=== PATIENT | male | born 1935 | race Caucasian/White ===

== ENCOUNTER 2019-10-17 20:09 | Observation (INO) ==
--- NOTE | 2019-10-17 21:04 | ERNOTE ---
Dyspnea - Date Date of Service: 10/17/19 - General Time Seen by Provider: 10/17/19 20:33 - Immun/Allergies/Home Medications Immunizations: IMMUNIZATION HX Immunizations Up to Date Yes History of Influenza Vaccine Yes Hx Pneumococcal Vaccination No Allergies/Adverse Reactions: Allergies No Known Allergies Allergy (Verified 10/17/19 20:27) Home Medications: HOME MEDICATIONS Aspirin 325 mg PO DAILY 04/16/16 [Last Taken Unknown] Atorvastatin Calcium [Lipitor] 10 mg PO DAILY 04/16/16 [Last Taken Unknown] Budesonide/Formoterol Fumarate [Symbicort 80-4.5 Mcg Inhaler] 1 puff IH BID 04/16/16 [Last Taken Unknown] Carbidopa [Lodosyn] 25 mg PO HS 04/16/16 [Last Taken Unknown] Hydrochlorothiazide [Hydrodiuril] 12.5 mg PO DAILY 04/16/16 [Last Taken Unknown] Losartan Potassium [Cozaar] 50 mg PO DAILY 04/16/16 [Last Taken Unknown] Metoprolol Tartrate [Lopressor] 12.5 mg PO BID 04/16/16 [Last Taken Unknown] ropinirole 0.5 mg tablet 0.5 mg PO DAILY 06/24/18 [Last Taken Unknown] cholecalciferol (vitamin D3) 2,000 unit capsule 2,000 unit PO DAILY 10/07/19 [Last Taken Unknown] - History of Present Illness Narrative: Patient is an 84 years old male who present brought in by his daughters with multiple complaints. Patient was diagnosed with pneumonia 2 weeks ago and started on Z-Lui and corticosteroid, prednisone tapered. After 2 rounds of Z- Lui and more than 10 days of corticosteroid he still has a cough productive of sputum. He also complains of not having a bowel movement for 5 days and having left lower quadrant pain. His and his daughter also said that he is forgetful and just not as sharp as he normally is. Patient had two fall in the last 2 weeks. He reports he got himself entangled in his oxygen tubing. After each falls he was seen in the ED and had x-rays taken to rule out rib fracture. 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 He is on 4 L during the day, and 2 L at night. His initial EKG show atrial fibrillation and patient and family denied him having previous diagnostic of atrial fibrillation. Medical History (Last Reviewed 10/17/19 @ 21:21 by Ivelisse Caldwell RN) Diverticulitis of colon Onset Date: Unknown Ganglion Onset Date: ~2012 rt knee Hypertension Onset Date: Unknown Myocardial infarction Onset Date: ~1994 Restless legs Onset Date: Unknown Surgical History: Surgical History (Last Reviewed 10/17/19 @ 21:21 by Ivelisse Caldwell RN) Excision Onset Date: ~2012 [place]--excision ganglion cyst rt lateral knee History of angioplasty Onset Date: Unknown History of cataract surgery Onset Date: ~2011 bilat History of colonoscopy Onset Date: ~2011 [facility] Family History: Family History (Last Reviewed 10/17/19 @ 21:21 by Ivelisse Caldwell RN) Brother Myocardial infarction CVA (cerebral vascular accident) Father Lung cancer Mother Bone cancer Social History: (Last Reviewed 10/17/19 @ 21:21 by Ivelisse Caldwell RN) Social History: Marital status: current occupational status: retired Service: Yes Tobacco: Smoking Status: Former smoker Alcohol: alcohol intake: current Substance Use: substance use type: does not use Dietary Habits: caffeine: Yes Progress - Vital Signs Vital Signs: Vital Signs 10/17/19 20:20 Temperature 36.8 C Pulse Rate 82 Respiratory Rate 93 H Blood Pressure 160/84 H O2 Sat by Pulse Oximetry 93 - EKG EKG #1 EKG: atrial fibrillation EKG read: Interp. by nv - HR 75 - Progress/Reassessment Chief Complaint: Dyspnea Departure Clinical Impression: New onset atrial fibrillation, Constipation - Departure Disposition: Still a patient Condition: Fair
[2019-10-17 21:17] LABS: Hematocrit 36.6 % (42.0-52.0); Hemoglobin 11.8 gm/dL (13.5-18.0); Mean Cell Volume 97.3 fl (78-100); Mean Corpuscular Hemoglobin 31.4 pg (27-31); Mean Corpuscular Hgb Conc 32.2 g/dl (32-36); Mean Platelet Volume 9.4 fl (8-11.3); Platelet Count 215 K/mm3 (150-450); Red Blood Count 3.76 M/mm3 (4.7-6.0); Red Cell Distribution Width 15.1 % (11.5-14.0); Venous Blood Gas HCO3 33.3 mmol/L (22.0-29.0); Venous Blood Gas pH 7.47 (7.32-7.43); White Blood Count 12.1 K/mm3 (4.0-10.5)
[2019-10-17 21:22] LABS: Total Cells Counted 100
[2019-10-17 21:42] LABS: Albumin * 2.8 gm/dl (3.4-5.0); Anion Gap 7.9 mmol/L (6.8-13.8); Bilirubin, Total 0.8 mg/dL (0.0-1.1); Ca. Corrected For Albumin 8.9 mg/dL (8.4-10.2); Calcium * 8.3 mg/dL (7.9-10.9); Carbon Dioxide 35.3 mmol/L (24-32.6); Potassium 3.2 mmol/L (3.4-4.6); Total Protein 6.2 gm/dL (6.2-8.2)
[2019-10-17 21:46] LABS: Urine Bilirubin Negative (NEGATIVE); Urine Blood 25 /ul (NEGATIVE); Urine Ketone Negative (NEGATIVE); Urine Nitrite Negative (NEGATIVE); Urine Protein Negative (NEGATIVE)
[2019-10-17 21:52] LABS: Band 3 % (0-2.0); Eosinophil 2 % (0-3); Lymphocyte 8 % (20-51); Monocyte 2 % (0-9); Neutrophil 85 % (42-75); Neutrophil # 10.3 K/mm3 (1.3-6.0); Platelet Estimate Normal (NORMAL); RBC Morphology Normal (NORMAL)
[2019-10-17 21:55] LABS: Urine Appearance Slightly Cloudy (CLEAR); Urine Bacteria 1+; Urine Color Yellow; Urine RBC 0-5 /hpf (0-5); Urine Renal Epithelial Cell Few - 1+ /hpf
[2019-10-17] MEDS ORDERED: MORPHINE SULFATE 4 MG/ML SYRG IV ONE (22:54)
[2019-10-18] MEDS ORDERED: POTASSIUM CHLORIDE 20 MEQ TABLET.SA PO ONE (01:32)
[2019-10-18] MEDS ORDERED: MAGNESIUM CITRATE 300 ML BTL PO ONE (02:48)
[2019-10-18] MEDS ORDERED: ENOXAPARIN SODIUM 60 MG/0.6 ML SYRG SC SCH (03:15)
[2019-10-18] MEDS ORDERED: METOPROLOL TARTRATE 25 MG TABLET PO ONE (09:42)
[2019-10-18] MEDS ORDERED: DOCUSATE SODIUM 100 MG CAPSULE PO SCH (11:45)
[2019-10-18] MEDS ORDERED: POLYETHYLENE GLYCOL 3350 17 GM PACKET PO SCH (11:45)
[2019-10-18] MEDS ORDERED: ALBUTEROL SULFATE/IPRATROPIUM 3 ML NEBU IH PRN (12:08)
[2019-10-18] MEDS ORDERED: guaiFENesin 100 MG/5 ML SYRUP PO PRN (12:09)
[2019-10-18] MEDS ORDERED: HYDROCHLOROTHIAZIDE 12.5 MG CAPSULE PO SCH (12:15)
[2019-10-18] MEDS ORDERED: LOSARTAN POTASSIUM 50 MG TABLET PO SCH (12:15)
[2019-10-18] MEDS ORDERED: CHOLECALCIFEROL 1,000 UNIT CAPSULE PO SCH (12:15)
[2019-10-18] MEDS ORDERED: rOPINIRole HCL 0.5 MG TABLET PO SCH (12:15)
--- NOTE | 2019-10-18 12:31 | HPDIS ---
Chief Complaint - Chief Complaint Date of Service: 10/18/19 Time of Service: 12:11 Chief Complaint: I have chronic shortness of breath and constipation for 4 days History of Present Illness: 84-year-old male with a past medical history of COPD, oxygen dependence, Parkinson's disease, hypertension, coronary artery disease, old OR and recent pneumonia was evaluated in our ER when he was brought in by his and daughter who reported that the patient has been weak and increasingly confused and presents memory loss for the past few days. Patient was diagnosed with pneumonia 2 weeks ago and was treated on an outpatient basis with p.o. antibiotics and p.o. steroids due to exacerbation of his COPD. He reports that he got slightly better but has never felt okay. He also complained of constipation for more than 5 days that has been making him very uncomfortable and ill to his stomach. His only other complaint was left flank pain due to a known rib fracture secondary to a fall that occurred in his home several days ago, he takes ibuprofen for the pain which helps. Patient has had several recent falls most likely related to his chronic conditions and problems with balance, although he says a second one was due to his clumsiness when he tripped over his oxygen tubes. He denies any fever or chills or ongoing cough but says he feels increasingly short of breath due to COPD. Patient denied any other symptoms. Medical History (Last Reviewed 10/17/19 @ 21:21 by Ivelisse Caldwell RN) Diverticulitis of colon Onset Date: Unknown Ganglion Onset Date: ~2012 rt knee Hypertension Onset Date: Unknown Myocardial infarction Onset Date: ~1994 Restless legs Onset Date: Unknown Surgical History: Surgical History (Last Reviewed 10/17/19 @ 21:21 by Ivelisse Caldwell RN) Excision Onset Date: ~2012 [place]--excision ganglion cyst rt lateral knee History of angioplasty Onset Date: Unknown History of cataract surgery Onset Date: ~2011 bilat History of colonoscopy Onset Date: ~2011 [facility] Family History: Family History (Last Reviewed 10/17/19 @ 21:21 by Ivelisse Caldwell RN) Brother Myocardial infarction CVA (cerebral vascular accident) Father Lung cancer Mother Bone cancer Social History: (Last Reviewed 10/17/19 @ 21:21 by Ivelisse Caldwell RN) Social History: Marital status: current occupational status: retired Service: Yes Tobacco: Smoking Status: Former smoker Alcohol: alcohol intake: current Substance Use: substance use type: does not use Dietary Habits: caffeine: Yes Peds Patient Hx - Developmental: No Pertinent Hx Peds Patient Hx - Medical: No Pertinent Hx Peds Patient Hx - Cardiac/Respiratory: No Pertinent Hx Peds Patient Hx - Surgical: No Surgical History Patient History - Cancer: No Hx of Cancer Review Of Systems (GEN) - Review of Systems Generalized/Overall Review: Present: Fatigue EENTM: Present: No Symptoms Reported Respiratory: Present: Shortness of Breath Cardiac: Present: No Symptoms Reported Abdominal: Present: Constipation Genitourinary: Present: No Symptoms Reported Musculoskeletal: Present: No Symptoms Reported Neurological: Present: No Symptoms Reported Skin: Present: No Symptoms Reported Endocrine: Present: No Symptoms Reported Immunizations: IMMUNIZATION HX Immunizations Up to Date Yes History of Influenza Vaccine Yes Hx Pneumococcal Vaccination No Allergies/Adverse Reactions: Allergies Allergy/AdvReac Type Severity Reaction Status Date / Time No Known Allergies Allergy Verified 10/17/19 20:27 Home Medications: HOME MEDICATIONS Aspirin 325 mg PO DAILY 04/16/16 [Last Taken Unknown] Atorvastatin Calcium [Lipitor] 10 mg PO DAILY 04/16/16 [Last Taken Unknown] Budesonide/Formoterol Fumarate [Symbicort 80-4.5 Mcg Inhaler] 1 puff IH BID 04/16/16 [Last Taken Unknown] Carbidopa [Lodosyn] 25 mg PO HS 04/16/16 [Last Taken Unknown] Hydrochlorothiazide [Hydrodiuril] 12.5 mg PO DAILY 04/16/16 [Last Taken Unknown] Losartan Potassium [Cozaar] 50 mg PO DAILY 04/16/16 [Last Taken Unknown] Metoprolol Tartrate [Lopressor] 12.5 mg PO BID 04/16/16 [Last Taken Unknown] ropinirole 0.5 mg tablet 0.5 mg PO DAILY 06/24/18 [Last Taken Unknown] cholecalciferol (vitamin D3) 2,000 unit capsule 2,000 unit PO DAILY 10/07/19 [Last Taken Unknown] Polyethylene Glycol 3350 [Miralax] 17 gm PO DAILY #10 packet 10/18/19 [Last Taken Unknown] Exam - Exam Vital Signs: Vital Signs - Last Taken Temp 36.8 C 10/18/19 10:41 Pulse 68 10/18/19 10:41 Resp 20 10/18/19 10:41 BP 163/77 H 10/18/19 10:41 Pulse Ox 95 10/18/19 10:41 Constitutional: Present: Alert, Oriented x3, Cooperative, Well developed, No distress, Elderly, Thin and frail ENT Exam: Present: normal ENT inspection, hearing grossly normal, pharynx juliocesar l, TMs normal Eye Exam: bilateral eye: normal inspection, PERRL, EOMI Neck: Present: non-tender, full range of motion, supple, normal inspection, trac hea midline Back Exam: Present: normal inspection, no CVA tenderness, no vertebral tenderness Breasts: Present: Exam deferred Respiratory: Present: lungs clear, no respiratory distress, decreased breath sounds, rhonchi, No rales, No wheezing Cardiovascular/Chest: Present: normal peripheral pulses, regular rate, rhythm, no chest tenderness, no edema, no gallop, no JVD, no murmur, no rub Peripheral Pulses: carotid (R): 3+, carotid (L): 3+, femoral (R): 3+, femoral (L): 3+, dorsalis-pedis (R): 2+, dorsalis-pedis (L): 2+ Abdomen: Present: Normal bowel sounds, soft, nontender, nondistended, no rebound tenderness, no hepatospenomegaly, no masses /Rectal: Present: Exam deferred Extremity: Present: normal range of motion, non-tender, normal inspection, no pedal edema, no calf tenderness, normal capillary refill, pelvis stable Skin Exam: Present: normal color, warm/dry, no cyanosis Lymphatic: Present: no adenopathy Neurologic: Present: machine greaser II-XII nml as tested, normal cerebellar test, no motor/sensory deficits, alert, normal mood/affect, oriented x 3 Appearance: Present: appropriate insight, neat, no memory impairment, disheveled Eye contact: Present: cooperative, good eye contact, normal speech Thoughts: Present: normal thought pattern, no apparent hallucination Diagnostic Studies: Abnormal Lab Results 10/17/19 10/17/19 10/17/19 Range/Units 21:10 21:10 21:10 WBC 12.1 H (4.0-10.5) K/mm3 RBC 3.76 L (4.7-6.0) M/mm3 Hgb 11.8 L (13.5-18.0) gm/dL Hct 36.6 L (42.0-52.0) % MCH 31.4 H (27-31) pg RDW 15.1 H (11.5-14.0) % Neutrophils % (Manual) 85 H (42-75) % Band Neuts % (Manual) 3 H (0-2.0) % Lymphocytes % (Manual) 8 L (20-51) % Neutrophils # (Manual) 10.3 H (1.3-6.0) K/mm3 Lymphocytes # (Manual) 1.0 L (1.5-3.5) k/mm3 HCO3 33.3 H (22.0-29.0) mmol/L Total CO2 34.7 H (22.0-26.0) mmol/L Base Excess 8.6 H (-2.0-3.0) mmol/L ABG pH 7.47 H (7.32-7.43) VBG O2 Saturation 66.6 L (94.0-98.0) % Potassium 3.2 L (3.4-4.6) mmol/L Carbon Dioxide 35.3 H (24-32.6) mmol/L BUN/Creatinine Ratio 28.0 H (9.0-21.6) ALT 13 L (19-67) U/L Albumin 2.8 L (3.4-5.0) gm/dl Urine Blood (NEGATIVE) /ul Urine Urobilinogen (NORMAL) EU/dl Urine WBC (0-5) /hpf Ur Renal Epithelial Cell (NONE) /hpf Urine Bacteria (NONE) 10/17/19 Range/Units 21:41 WBC (4.0-10.5) K/mm3 RBC (4.7-6.0) M/mm3 Hgb (13.5-18.0) gm/dL Hct (42.0-52.0) % MCH (27-31) pg RDW (11.5-14.0) % Neutrophils % (Manual) (42-75) % Band Neuts % (Manual) (0-2.0) % Lymphocytes % (Manual) (20-51) % Neutrophils # (Manual) (1.3-6.0) K/mm3 Lymphocytes # (Manual) (1.5-3.5) k/mm3 HCO3 (22.0-29.0) mmol/L Total CO2 (22.0-26.0) mmol/L Base Excess (-2.0-3.0) mmol/L ABG pH (7.32-7.43) VBG O2 Saturation (94.0-98.0) % Potassium (3.4-4.6) mmol/L Carbon Dioxide (24-32.6) mmol/L BUN/Creatinine Ratio (9.0-21.6) ALT (19-67) U/L Albumin (3.4-5.0) gm/dl Urine Blood 25 H (NEGATIVE) /ul Urine Urobilinogen 2.0 H (NORMAL) EU/dl Urine WBC 5-10 H (0-5) /hpf Ur Renal Epithelial Cell Few - 1+ H (NONE) /hpf Urine Bacteria 1+ H (NONE) Laboratory Results WBC 12.1 K/mm3 (4.0-10.5) H 10/17/19 21:10 RBC 3.76 M/mm3 (4.7-6.0) L 10/17/19 21:10 Hgb 11.8 gm/dL (13.5-18.0) L 10/17/19 21:10 Hct 36.6 % (42.0-52.0) L 10/17/19 21:10 MCV 97.3 fl (78-100) 10/17/19 21:10 MCH 31.4 pg (27-31) H 10/17/19 21:10 MCHC 32.2 g/dl (32-36) 10/17/19 21:10 RDW 15.1 % (11.5-14.0) H 10/17/19 21:10 Plt Count 215 K/mm3 (150-450) 10/17/19 21:10 MPV 9.4 fl (8-11.3) 10/17/19 21:10 Neutrophils % (Manual) 85 % (42-75) H 10/17/19 21:10 Band Neuts % (Manual) 3 % (0-2.0) H 10/17/19 21:10 Lymphocytes % (Manual) 8 % (20-51) L 10/17/19 21:10 Monocytes % (Manual) 2 % (0-9) 10/17/19 21:10 Eosinophils % (Manual) 2 % (0-3) 10/17/19 21:10 Neutrophils # (Manual) 10.3 K/mm3 (1.3-6.0) H 10/17/19 21:10 Lymphocytes # (Manual) 1.0 k/mm3 (1.5-3.5) L 10/17/19 21:10 Monocytes # (Manual) 0.2 k/mm3 (0.0-1.0) 10/17/19 21:10 Eosinophils # (Manual) 0.2 k/mm3 (0.0-0.7) 10/17/19 21:10 Platelet Estimate Normal (NORMAL) 10/17/19 21:10 RBC Morphology Normal (NORMAL) 10/17/19 21:10 pCO2 46.4 mmHg (35.0-48.0) 10/17/19 21:10 pO2 32.8 mmHg (23.3-35.1) 10/17/19 21:10 HCO3 33.3 mmol/L (22.0-29.0) H 10/17/19 21:10 Total CO2 34.7 mmol/L (22.0-26.0) H 10/17/19 21:10 Base Excess 8.6 mmol/L (-2.0-3.0) H 10/17/19 21:10 ABG pH 7.47 (7.32-7.43) H 10/17/19 21:10 VBG O2 Saturation 66.6 % (94.0-98.0) L 10/17/19 21:10 Sodium 142 mmol/L (132-142) 10/17/19 21:10 Plasma Sodium 142 mmol/L (130-142) 10/17/19 21:10 Potassium 3.2 mmol/L (3.4-4.6) L 10/17/19 21:10 Chloride 102 mmol/L (97-106) 10/17/19 21:10 Carbon Dioxide 35.3 mmol/L (24-32.6) H 10/17/19 21:10 Anion Gap 7.9 mmol/L (6.8-13.8) 10/17/19 21:10 BUN 23 mg/dL (6-23) 10/17/19 21:10 Creatinine 0.82 mg/dL (0.4-1.4) 10/17/19 21:10 Est GFR (Non-Af Amer) 95 mL/min (60-130) D 10/17/19 21:10 BUN/Creatinine Ratio 28.0 (9.0-21.6) H 10/17/19 21:10 Random Glucose 103 mg/dL (70-110) 10/17/19 21:10 Lactic Acid, Venous 0.9 mmol/L (0.4-2.0) 10/17/19 21:10 Calcium 8.3 mg/dL (7.9-10.9) 10/17/19 21:10 Calcium Adj for Albumin 8.9 mg/dL (8.4-10.2) 10/17/19 21:10 Total Bilirubin 0.8 mg/dL (0.0-1.1) 10/17/19 21:10 AST 23 U/L (0-48) 10/17/19 21:10 ALT 13 U/L (19-67) L 10/17/19 21:10 Alkaline Phosphatase 100 U/L (50-170) 10/17/19 21:10 B-Natriuretic Peptide 570 pg/mL (5-650) 10/17/19 21:10 Total Protein 6.2 gm/dL (6.2-8.2) 10/17/19 21:10 Albumin 2.8 gm/dl (3.4-5.0) L 10/17/19 21:10 Urine Color Yellow 10/17/19 21:41 Urine Appearance Slightly cloudy (CLEAR) 10/17/19 21:41 Urine pH 6.0 pH (5.0-7.0) 10/17/19 21:41 Ur Specific Criders 1.010 SP.GR. (1.005-1.030) 10/17/19 21:41 Urine Protein Negative mg/dL (NEGATIVE) 10/17/19 21:41 Urine Glucose (UA) Negative mg/dL (NEGATIVE) 10/17/19 21:41 Urine Ketones Negative mg/dL (NEGATIVE) 10/17/19 21:41 Urine Blood 25 /ul (NEGATIVE) H 10/17/19 21:41 Urine Nitrate Negative (NEGATIVE) 10/17/19 21:41 Urine Bilirubin Negative mg/dl (NEGATIVE) 10/17/19 21:41 Urine Urobilinogen 2.0 EU/dl (NORMAL) H 10/17/19 21:41 Ur Leukocyte Esterase Negative /ul (NEGATIVE) 10/17/19 21:41 Urine RBC 0-5 /hpf (0-5) 10/17/19 21:41 Urine WBC 5-10 /hpf (0-5) H 10/17/19 21:41 Ur Epithelial Cells None seen /hpf (0-5) 10/17/19 21:41 Ur Renal Epithelial Cell Few - 1+ /hpf (NONE) H 10/17/19 21:41 Urine Bacteria 1+ (NONE) H 10/17/19 21:41 Urine Culture Comments No culture indicated 10/17/19 21:41 Stool Occult Blood Negative 10/17/19 22:53 Assessment/Plan - Narrative Narrative: Patient was evaluated at bedside and was found to be afebrile and in no acute distress, he is currently on his baseline oxygen by nasal cannula and is saturating adequately. Head CT was negative for any acute findings and abdominal CT revealed a right inguinal hernia with loop of small bowel diverticulosis and a bladder filling defect suspicious for malignancy. The radiologist suggested a urological consult and possible uroscopy. This will have to be done an outpatient basis and evaluated by his PCP after discharge. Currently the patient denies any pain besides his soreness on his left flank due to his old rib fracture. He is sitting comfortably and is oriented in person time and place. His routine medications were reconciled to be administered during hospitalization in order to control his blood pressure and other chronic conditions. Patient was treated with multiple laxatives and a Fleet enema and has now moved his bowels 5 times, he reports great relief after this. His abdomen was nontender nondistended and had normal bowel sounds. Auscultation of his lungs only revealed scattered rhonchi which might be chronic given his advanced pulmonary conditions. There were no wheezing or crackles heard on auscultation. Patient denied any chest pain or chest pressure and says he has not had any cardiac issues since his OR back in 1998. Patient was found to have a new onset atrial fibrillation during evaluation in the ER before admission, he denied ever being diagnosed with atrial fibrillation and there was no record of that. This morning quality assurance monitor final displayed sinus rhythm with adequate heart rate, but as a precaution follow-up EKG was done at bedside and revealed ST segment depression in several leads. Given the lack of known history of atrial fibrillation and the abnormalities on his EKG this morning, troponin was ordered to rule out any cardiac ischemia. We will follow-up with the results and if they are negative we will consider discharging the patient home. His family specifically his daughter was informed of the plan. - Assessment/Plan (1) New onset atrial fibrillation Problem: Resolved (2) Constipation Problem: Resolved (3) COPD (chronic obstructive pulmonary disease) Problem: Chronic Qualifiers: COPD type: emphysema (4) HTN (hypertension) Problem: Chronic Qualifiers: Hypertension type: essential hypertension Qualified Code(s): I10 - Essential (primary) hypertension (1) New onset atrial fibrillation Problem: Resolved (2) Constipation Problem: Resolved (3) COPD (chronic obstructive pulmonary disease) Problem: Chronic Qualifiers: COPD type: emphysema (4) HTN (hypertension) Problem: Chronic Qualifiers: Hypertension type: essential hypertension Qualified Code(s): I10 - Essential (primary) hypertension Date of Discharge:: 10/18/19 Description of Stay: Patient's troponin was negative, and he continues to denies chest pain or chest discomfort. He has had multiple bowels after being treated for his constipation. All of his routine meds were reconciled and he was instructed to take them as prescribed and to follow-up with his PCP in the next few days. Procedures Performed: none Results and Findings: Lab Pending Results 10/17/19 21:10: WBC 12.1 H, RBC 3.76 L, Hgb 11.8 L, Hct 36.6 L, MCV 97.3, MCH 31.4 H, MCHC 32.2, RDW 15.1 H, Plt Count 215, MPV 9.4, Neutrophils % (Manual) 85 H, Band Neuts % (Manual) 3 H, Lymphocytes % (Manual) 8 L, Monocytes % (Manual) 2, Eosinophils % (Manual) 2, Neutrophils # (Manual) 10.3 H, Lymphocytes # (Manual) 1.0 L, Monocytes # (Manual) 0.2, Eosinophils # (Manual) 0.2, Platelet Estimate Normal, RBC Morphology Normal 10/17/19 21:10: Sodium 142, Plasma Sodium 142, Potassium 3.2 L, Chloride 102, Carbon Dioxide 35.3 H, Anion Gap 7.9, BUN 23, Creatinine 0.82, Est GFR (Non-Af Amer) 95 D, BUN/Creatinine Ratio 28.0 H, Random Glucose 103, Calcium 8.3, Calcium Adj for Albumin 8.9, Total Bilirubin 0.8, AST 23, ALT 13 L, Alkaline P hosphatase 100, B-Natriuretic Peptide 570, Total Protein 6.2, Albumin 2.8 L 10/17/19 21:10: Lactic Acid, Venous 0.9 10/17/19 21:10: pCO2 46.4, pO2 32.8, HCO3 33.3 H, Total CO2 34.7 H, Base Excess 8.6 H, ABG pH 7.47 H, VBG O2 Saturation 66.6 L 10/17/19 21:41: Urine Color Yellow, Urine Appearance Slightly cloudy, Urine pH 6.0, Ur Specific Criders 1.010, Urine Protein Negative, Urine Glucose (UA) Negative, Urine Ketones Negative, Urine Blood 25 H, Urine Nitrate Negative, Urine Bilirubin Negative, Urine Urobilinogen 2.0 H, Ur Leukocyte Esterase Negative, Urine RBC 0-5, Urine WBC 5-10 H, Ur Epithelial Cells None seen, Ur Renal Epithelial Cell Few - 1+ H, Urine Bacteria 1+ H, Urine Culture Comments No culture indicated 10/17/19 22:53: Stool Occult Blood Negative Discharge Location: Home Disposition: Home self-care Condition: Stable Face to Face Encounter completed per [facility] Guidelines: No Discharge Activity: Activity as tolerated Discharge Diet: General/regular food Referrals: Geovany Mcbride DO [Primary Care Provider] - Prescriptions (Any new or edited meds): Polyethylene Glycol 3350 [Miralax] 17 gm PO DAILY #10 packet Transmission Status: Pending to [facility] - [place], [place] Complete Home Medications List: Complete Home Medication List: Aspirin 325 mg PO DAILY 04/16/16 Atorvastatin Calcium [Lipitor] 10 mg PO DAILY 04/16/16 Budesonide/Formoterol Fumarate [Symbicort 80-4.5 Mcg Inhaler] 1 puff IH BID 04/16/16 Carbidopa [Lodosyn] 25 mg PO HS 04/16/16 Hydrochlorothiazide [Hydrodiuril] 12.5 mg PO DAILY 04/16/16 Losartan Potassium [Cozaar] 50 mg PO DAILY 04/16/16 Metoprolol Tartrate [Lopressor] 12.5 mg PO BID 04/16/16 ropinirole 0.5 mg tablet 0.5 mg PO DAILY 06/24/18 cholecalciferol (vitamin D3) 2,000 unit capsule 2,000 unit PO DAILY 10/07/19 Polyethylene Glycol 3350 [Miralax] 17 gm PO DAILY #10 packet 10/18/19
[2019-10-18 16:46] VITALS: BP 164/81
[2019-10-18] MEDS ORDERED: CARBIDOPA 25 MG PO SCH (21:00)
[2019-10-18] MEDS ORDERED: METOPROLOL TARTRATE 25 MG TABLET PO SCH (21:00)
[2019-10-18] MEDS ORDERED: FLUTICASONE PROPION/SALMETEROL 14 PUFF DISK.W.DEV IH SCH (21:00)
[2019-10-19] MEDS ORDERED: ROSUVASTATIN CALCIUM 10 MG TABLET PO SCH (09:00)
== END 2019-10-18 16:40 | disposition home health service (06) ==
LOC: ER 20:09 → MS 20:09
PROVIDERS: ADMIT Family Medicine; ATTEND Family Medicine
DX: I25.2 Old myocardial infarction; I10 Essential (primary) hypertension; K59.00 Constipation, unspecified; Z91.81 History of falling; I25.10 Atherosclerotic heart disease of native coronary artery without angina pectoris; J44.9 Chronic obstructive pulmonary disease, unspecified; Z87.891 Personal history of nicotine dependence; Z87.81 Personal history of (healed) traumatic fracture; I48.91 Unspecified atrial fibrillation
CPT/HCPCS: 36415; 36416; 70450; 71020; 71046; 74019; 74020; 74177; 80053; 81001; 82272; 82803; 83519; 83605; 83880; 84484; 85025; 87040; 93005; 94760; 96374; 99285; G0378; Q9967

== ENCOUNTER 2019-10-25 17:35 | Inpatient (IN) ==
[2019-10-25] MEDS ORDERED: ALBUTEROL SULFATE/IPRATROPIUM 3 ML NEBU IH ONE (17:57)
[2019-10-25] MEDS ORDERED: METHYLPREDNISOLONE SOD SUCC/PF 40 MG/ML VIAL IV ONE (17:59)
--- NOTE | 2019-10-25 18:00 | ERNOTE ---
Dyspnea - Date Date of Service: 10/25/19 - General Presenting Symptoms: shortness of breath Time Seen by Provider: 10/25/19 17:52 Source: patient Exam Limitations: no limitations - Immun/Allergies/Home Medications Immunizations: IMMUNIZATION HX Immunizations Up to Date Yes History of Influenza Vaccine Yes Hx Pneumococcal Vaccination Yes Allergies/Adverse Reactions: Allergies No Known Allergies Allergy (Verified 10/25/19 17:44) Home Medications: HOME MEDICATIONS Aspirin 325 mg PO DAILY 04/16/16 [Last Taken Unknown] Atorvastatin Calcium [Lipitor] 10 mg PO DAILY 04/16/16 [Last Taken Unknown] Budesonide/Formoterol Fumarate [Symbicort 80-4.5 Mcg Inhaler] 1 puff IH BID 04/16/16 [Last Taken Unknown] Carbidopa [Lodosyn] 25 mg PO HS 04/16/16 [Last Taken Unknown] Hydrochlorothiazide [Hydrodiuril] 12.5 mg PO DAILY 04/16/16 [Last Taken Unknown] Losartan Potassium [Cozaar] 50 mg PO DAILY 04/16/16 [Last Taken Unknown] Metoprolol Tartrate [Lopressor] 12.5 mg PO BID 04/16/16 [Last Taken Unknown] ropinirole 0.5 mg tablet 0.5 mg PO HS 06/24/18 [Last Taken Unknown] cholecalciferol (vitamin D3) 2,000 unit capsule 2,000 unit PO DAILY 10/07/19 [Last Taken Unknown] Polyethylene Glycol 3350 [Miralax] 17 gm PO DAILY #10 packet 10/18/19 [Last Taken Unknown] tiotropium bromide 18 mcg capsule with inhalation device 1 cap INHALATION DAILY #0.1 inh 10/19/19 [Last Taken Unknown] - History of Present Illness Narrative: 84 yr old male with history of HTN, CAD, [place] 1998, Parkinson's Disease, recently diagnosis of atrial fibrillation, oxygen dependent the past 4 years, respiratory failure with hypoxia, severe COPD oxygen dependent, an recent pneumonia presents with SOB and decreased exercise intolerance. Denies any fever. Reports occassional productive cough with white sputum. Denies any chest pain. Wear 2 L O2 N/C during the night and 4 L N/C oxygen during the day. He does not have any nebulizer treatments at home. He had pneumonia approximately two weeks ago and was treated on an outpatient basis. He has had increasing general weakness with frequent falls. Last week he was diagnosed with new onset atrial fibrillation. He was hospitalized over night. He was discharged on aspirin 325 mg for anti - coagulation as he was in sinus rhythm again and because of his falls. He and his live alone. The patient cares for his who has dementia. His daughter has been trying to get some home resources for them. On his discharge from the hospital last week, Dr. Dennis made a referral to [facility] for a home health nurse, physical therapy and a home health aide to assist with bathing etc. They are supposed to start coming on Saturday. Date (Duration): 10/25/19 Time (Timing): 17:54 Severity: moderate Treatment [employer]ER: none Initiating event: Reports: upper resp illness - Had pneumonia 2 - 3 weeks ago. , sports/exercise - any activity such as walking 5 - 10 ft. Frequency of episodes: Reports: chronic episodes - Has chronic COPD, respiratory failure and hypoxia Modifying Factors - (Improves): Reports: rest Modifying Factors (Worsens): Reports: activity, other - stress Associated Symptoms-Dyspnea: Reports: cough - occassional . Denies: fever/chills, wheezing, ankle/leg swelling Prior Treatment: Reports: recently hospitalized - Admitted him last Saturday over night Review of Systems - Review of Systems Constitutional: Present: recent illness - pneumonia 2 - 3 weeks ago , weakness, fatigue, decreased activity level. Absent: fever, chills, diaphoresis EYE: Present: no symptoms reported ENT: Present: no symptoms reported Respiratory: Present: shortness of breath, cough. Absent: wheezing Cardiology: Absent: chest pain, palpitations, edema Gastrointestinal/Abdominal: Present: eating less. Absent: nausea, vomiting Genitourinary: Absent: pain, dysuria, decreased urinary output Musculoskeletal: Present: no symptoms reported Skin: Present: no symptoms reported Neurological: Present: anxiety, weakness Endocrine: Present: no symptoms reported Hematologic/Lymphatic: Present: no symptoms reported Psych: Present: no symptoms reported All Other Systems: All systems neg except as marked Medical History (Last Reviewed 10/25/19 @ 17:57 by YOSVANY Sharp) Diverticulitis of colon Onset Date: Unknown Ganglion Onset Date: ~2012 rt knee Hypertension Onset Date: Unknown Myocardial infarction Onset Date: ~1994 Restless legs Onset Date: Unknown Surgical History: Surgical History (Last Reviewed 10/25/19 @ 17:57 by YOSVANY Sharp) Excision Onset Date: ~2012 [place]--excision ganglion cyst rt lateral knee History of angioplasty Onset Date: Unknown History of cataract surgery Onset Date: ~2011 bilat History of colonoscopy Onset Date: ~2011 [facility] Family History: Family History (Last Reviewed 10/25/19 @ 17:57 by YOSVANY Sharp) Brother Myocardial infarction CVA (cerebral vascular accident) Father Lung cancer Mother Bone cancer Social History: (Last Reviewed 10/25/19 @ 17:57 by YOSVANY Sharp) Social History: Marital status: current occupational status: retired Service: Yes Tobacco: Smoking Status: Former smoker Alcohol: alcohol intake: current Substance Use: substance use type: does not use Dietary Habits: caffeine: Yes Physical Exam - Physical Exam General Appearance: Present: wd/wn, alert, anxious Head Exam: Present: normal inspection, no evidence of injury Eye Exam: Normal inspection: bilateral, PERRL: bilateral, EOMI: bilateral Ears, Nose, Throat: Present: normal except -, normal pharynx, dry mucous membranes Neck: Present: normal inspection, nontender Respiratory: Present: no accessory muscle use, chest nontender, decreased breath sounds - significantly decreased breath sounds, other - Able to converse well . Absent: respiratory distress, rales, rhonchi, wheezing Cardiovascular/Chest: Present: no murmur, normal peripheral pulses, tachycardia Gastrointestinal/Abdominal: Present: normal bowel sounds, nontender, nondistended, soft Back Exam: Present: normal inspection, normal range of motion, no vertebral tenderness Extremity Exam: Present: normal inspection, non-tender, normal range of motion, no edema Neurological Exam: Present: alert, oriented, normal mood/affect, no motor/sensory deficits, other - Anxious Skin Exam: Present: normal color, warm/dry Progress - Results and Orders Patient's Lab Results:: I have reviewed the patient's lab results. Results and Orders: Laboratory Tests 10/25/19 18:12 WBC 16.0 H RBC 3.80 L Hgb 11.8 L Hct 38.1 L Plt Count 175 Laboratory Tests 10/25/19 18:18 pCO2 32.9 L pO2 60.3 L HCO3 24.1 Total CO2 25.1 H Base Excess 1.0 ABG pH 7.48 H ABG O2 Sat (Measured) 93.0 L Laboratory Tests 12/01/19 18:12 Sodium 141 Potassium 3.4 Chloride 104 Carbon Dioxide 33.6 H Anion Gap 6.8 BUN 23 Creatinine 0.85 Est GFR (Non-Af Amer) 91 Random Glucose 100 Calcium 8.7 Total Bilirubin 1.2 H AST 22 ALT 11 L Alkaline Phosphatase 109 B-Natriuretic Peptide 409 Total Protein 6.8 Albumin 3.0 L Laboratory Tests 10/25/19 18:39 Urine Color Yellow Urine Appearance Clear Urine pH 6.5 Ur Specific [place] 1.020 Urine Protein Negative Urine Glucose (UA) Negative Urine Ketones 15 Urine Blood 5 H Urine Nitrate Negative Urine Bilirubin Negative Urine Urobilinogen Normal Ur Leukocyte Esterase Negative Urine RBC None seen Urine WBC 0-5 Ur Epithelial Cells None seen Urine Bacteria None seen Urine Culture Comments No culture indicated Laboratory Tests 10/25/19 18:12 Troponin I 0.043 Laboratory Tests 10/25/19 18:12 D-Dimer 2.75 H - Vital Signs Patient's Vital Signs:: I have reviewed the patient's vital signs. Vital Signs: Vital Signs 10/25/19 17:40 Temperature 37.1 C Pulse Rate 106 H Respiratory Rate 18 Blood Pressure 174/84 H O2 Sat by Pulse Oximetry 92 L - EKG EKG #1 EKG: other - Sinus Tach rate 106 without any acute changes - X-Ray X-Ray #1 X-Ray: chest - consolidation right lower lobe not seen prior Interpretation: Interp. by al - CT/Ultrasound CT/Ultrasound Narrative: CTA chest - No PE. Bibasilar airspace disease. - Progress/Reassessment Chief Complaint: Dyspnea Progress:: Improved Progress Note-Subjective: 10/25/19 19:24 Breathing improved with Duo neb treatment as long as resting. 10/25/19 20:38 10/25/19 22:15 Oxygen saturation drops to mid 80's even while on oxygen with any minimal activity. Even just using the urinal while laying in bed. Test results etiology and treatment plan discussed with the patient and family. Case staffed with Dr. Raya who graciously agreed to accept his care. Plan - Plan Plan: Place in observation Departure Clinical Impression: COPD exacerbation, Supplemental oxygen dependent, Risk for falls Pneumonia Qualifiers: Pneumonia type: due to unspecified organism Laterality: right Lung location: lower lobe of lung Qualified Code(s): J18.9 - Pneumonia, unspecified organism - Departure Disposition: Still a patient Condition: Good
[2019-10-25 18:26] LABS: Hematocrit 38.1 % (42.0-52.0); Hemoglobin 11.8 gm/dL (13.5-18.0); Mean Cell Volume 100.3 fl (78-100); Mean Corpuscular Hemoglobin 31.1 pg (27-31); Mean Platelet Volume 9.8 fl (8-11.3); Neutrophil # 14.5 K/mm3 (1.3-6.0); Neutrophil % 90.9 % (42-75.0); Platelet Count 175 K/mm3 (150-450); Red Cell Distribution Width 16.7 % (11.5-14.0)
[2019-10-25 18:50] LABS: Anion Gap 6.8 mmol/L (6.8-13.8); BUN/Creatinine Ratio 27.1 (9.0-21.6); Bilirubin, Total 1.2 mg/dL (0.0-1.1); Ca. Corrected For Albumin 9.2 mg/dL (8.4-10.2); Calcium * 8.7 mg/dL (7.9-10.9); Carbon Dioxide 33.6 mmol/L (24-32.6); Potassium 3.4 mmol/L (3.4-4.6); Total Protein 6.8 gm/dL (6.2-8.2)
[2019-10-25 18:58] LABS: Urine Appearance Clear (CLEAR); Urine Bilirubin Negative (NEGATIVE); Urine Blood 5 /ul (NEGATIVE); Urine Color Yellow; Urine Ketone 15 mg/dL (NEGATIVE); Urine Nitrite Negative (NEGATIVE); Urine Protein Negative (NEGATIVE); Urine Urobilinogen Normal (NORMAL); Urine pH 6.5 pH (5.0-7.0)
[2019-10-25 18:59] LABS: Urine Bacteria None Seen; Urine RBC None Seen /hpf (0-5)
[2019-10-25 19:07] LABS: Urine WBC 0-5 /hpf (0-5)
[2019-10-25] MEDS ORDERED: cefTRIAXone SODIUM 1,000 MG/100 ML BAG IV ONE (20:18)
[2019-10-25] MEDS ORDERED: AZITHROMYCIN 250 MG TABLET PO ONE (21:02)
[2019-10-25] MEDS ORDERED: LEVOFLOXACIN IN DEXTROSE 5 % 500 MG/100 ML BAG IV SCH (22:15)
[2019-10-25] MEDS ORDERED: ALBUTEROL SULFATE/IPRATROPIUM 3 ML NEBU IH SCH (23:55)
[2019-10-25] MEDS: METHYLPREDNISOLONE SOD SUCC/PF 40 MG/ML VIAL IV SCH (23:55)
[2019-10-26] MEDS: ALBUTEROL SULFATE/IPRATROPIUM 3 ML NEBU IH SCH ×4 (01:02→18:10)
[2019-10-26] MEDS ORDERED: IBUPROFEN 400 MG TABLET PO PRN (04:37)
[2019-10-26] MEDS: METHYLPREDNISOLONE SOD SUCC/PF 40 MG/ML VIAL IV SCH ×4 (04:56→23:58)
[2019-10-26 06:13] LABS: Hematocrit 37.6 % (42.0-52.0); Mean Cell Volume 99.2 fl (78-100); Mean Corpuscular Hemoglobin 31.7 pg (27-31); Mean Corpuscular Hgb Conc 31.9 g/dl (32-36); Mean Platelet Volume 10.8 fl (8-11.3); Neutrophil # 15.6 K/mm3 (1.3-6.0); Neutrophil % 95.4 % (42-75.0); Platelet Count 168 K/mm3 (150-450); Red Blood Count 3.79 M/mm3 (4.7-6.0); Red Cell Distribution Width 16.7 % (11.5-14.0); White Blood Count 16.3 K/mm3 (4.0-10.5)
[2019-10-26 06:30] LABS: Albumin * 2.7 gm/dl (3.4-5.0); Anion Gap 15.1 mmol/L (6.8-13.8); BUN/Creatinine Ratio 21.6 (9.0-21.6); Calcium * 9.3 mg/dL (7.9-10.9); Carbon Dioxide 25.5 mmol/L (24-32.6); Potassium 3.6 mmol/L (3.4-4.6); Total Protein 6.7 gm/dL (6.2-8.2)
[2019-10-26] MEDS ORDERED: POLYETHYLENE GLYCOL 3350 17 GM PACKET PO PRN (08:31)
--- NOTE | 2019-10-26 08:31 | HP ---
Chief Complaint - Chief Complaint Date of Service: 10/26/19 Time of Service: 08:20 Chief Complaint: Shortness of breath History of Present Illness: Angel is an 84 yo male with chronic respiratory failure and COPD. He reports increased sputum, worse coughing, and shortness of breath. He has recently been on levaquin oral for outpatient treatment of COPD exacerbation. He presented to the ER last night for worsening symptoms and Chest xray showed pneumonia. He had an elevated WBC of 16,000. He follows with pulmonology at [facility]. Medical History (Last Reviewed 10/25/19 @ 23:13 by Ana Arciniega RN) Diverticulitis of colon Onset Date: Unknown Ganglion Onset Date: ~2012 rt knee Hypertension Onset Date: Unknown Myocardial infarction Onset Date: ~1994 Restless legs Onset Date: Unknown Surgical History: Surgical History (Last Reviewed 10/25/19 @ 23:13 by Ana Arciniega RN) Excision Onset Date: ~2012 [place]--excision ganglion cyst rt lateral knee History of angioplasty Onset Date: Unknown History of cataract surgery Onset Date: ~2011 bilat History of colonoscopy Onset Date: ~2011 [facility] Family History: Family History (Last Reviewed 10/25/19 @ 23:13 by Ana Arciniega RN) Brother Myocardial infarction CVA (cerebral vascular accident) Father Lung cancer Mother Bone cancer Social History: (Last Reviewed 10/25/19 @ 23:13 by Ana Arciniega RN) Social History: Marital status: current occupational status: retired Service: Yes Tobacco: Smoking Status: Former smoker Alcohol: alcohol intake: current Substance Use: substance use type: does not use Dietary Habits: caffeine: Yes Review Of Systems (GEN) - Review of Systems Generalized/Overall Review: Present: Weakness. Absent: Chills, Fever EENTM: Present: No Symptoms Reported Respiratory: Present: Cough, Shortness of Breath Cardiac: Present: No Symptoms Reported Abdominal: Present: No Symptoms Reported Genitourinary: Present: No Symptoms Reported Musculoskeletal: Present: No Symptoms Reported Neurological: Present: No Symptoms Reported Skin: Present: No Symptoms Reported Endocrine: Present: No Symptoms Reported Immunizations: IMMUNIZATION HX Immunizations Up to Date Yes History of Influenza Vaccine Yes Hx Pneumococcal Vaccination Yes Allergies/Adverse Reactions: Allergies Allergy/AdvReac Type Severity Reaction Status Date / Time No Known Allergies Allergy Verified 10/25/19 23:13 Home Medications: HOME MEDICATIONS Aspirin 325 mg PO DAILY 04/16/16 [Last Taken Unknown] Atorvastatin Calcium [Lipitor] 10 mg PO DAILY 04/16/16 [Last Taken Unknown] Budesonide/Formoterol Fumarate [Symbicort 80-4.5 Mcg Inhaler] 1 puff IH BID 04/16/16 [Last Taken Unknown] Carbidopa [Lodosyn] 25 mg PO HS 04/16/16 [Last Taken Unknown] Hydrochlorothiazide [Hydrodiuril] 12.5 mg PO DAILY 04/16/16 [Last Taken Unknown] Losartan Potassium [Cozaar] 50 mg PO DAILY 04/16/16 [Last Taken Unknown] Metoprolol Tartrate [Lopressor] 12.5 mg PO BID 04/16/16 [Last Taken Unknown] ropinirole 0.5 mg tablet 0.5 mg PO HS 06/24/18 [Last Taken Unknown] cholecalciferol (vitamin D3) 2,000 unit capsule 2,000 unit PO DAILY 10/07/19 [Last Taken Unknown] tiotropium bromide 18 mcg capsule with inhalation device 1 cap INHALATION DAILY #0.1 inh 10/19/19 [Last Taken Unknown] Polyethylene Glycol 3350 [Miralax] 17 gm PO PRN PRN 10/25/19 [Last Taken Unknown] Exam - Exam Vital Signs: Vital Signs - Last Taken Temp 36.7 C 10/26/19 06:19 Pulse 94 10/26/19 06:19 Resp 20 10/26/19 06:19 BP 158/85 H 10/26/19 06:19 Pulse Ox 97 10/26/19 06:19 Constitutional: Present: Alert, Oriented x3, Cooperative ENT Exam: Present: hearing grossly normal Eye Exam: bilateral eye: normal inspection Respiratory: Present: decreased breath sounds - bilateral base Cardiovascular/Chest: Present: no edema, no murmur, tachycardia Abdomen: Present: Normal bowel sounds, soft, nontender, nondistended Extremity: Present: normal inspection Skin Exam: Present: normal color, warm/dry, no cyanosis Diagnostic Studies: Abnormal Lab Results 10/25/19 10/25/19 10/25/19 Range/Units 18:12 18:12 18:12 WBC 16.0 H (4.0-10.5) K/mm3 RBC 3.80 L (4.7-6.0) M/mm3 Hgb 11.8 L (13.5-18.0) gm/dL Hct 38.1 L (42.0-52.0) % MCV 100.3 H (78-100) fl MCH 31.1 H (27-31) pg MCHC 31.0 L (32-36) g/dl RDW 16.7 H (11.5-14.0) % Immature Gran % (Auto) 0.90 H (0.001-0.429) % Immature Gran # (Auto) 0.15 H (0.000-0.0310) K/mm3 Neutrophils % 90.9 H (42-75.0) % Lymphocytes % 2.6 L (20-51) % Neutrophils # 14.5 H (1.3-6.0) K/mm3 Lymphocytes # 0.41 L (1.5-3.5) k/mm3 D-Dimer 2.75 H (0.19-0.49) ug/mL pCO2 (35.0-48.0) mmHg pO2 (83.0-108.0) mmHg Total CO2 (19.0-24.0) mmol/L ABG pH (7.35-7.45) ABG O2 Sat (Measured) (94.0-98.0) % Carbon Dioxide 33.6 H (24-32.6) mmol/L Anion Gap (6.8-13.8) mmol/L BUN/Creatinine Ratio 27.1 H (9.0-21.6) Random Glucose (70-110) mg/dL Total Bilirubin 1.2 H (0.0-1.1) mg/dL ALT 11 L (19-67) U/L Albumin 3.0 L (3.4-5.0) gm/dl Urine Blood (NEGATIVE) /ul 10/25/19 10/25/19 10/26/19 Range/Units 18:18 18:39 06:00 WBC 16.3 H (4.0-10.5) K/mm3 RBC 3.79 L (4.7-6.0) M/mm3 Hgb 12.0 L (13.5-18.0) gm/dL Hct 37.6 L (42.0-52.0) % MCV (78-100) fl MCH 31.7 H (27-31) pg MCHC 31.9 L (32-36) g/dl RDW 16.7 H (11.5-14.0) % Immature Gran % (Auto) 0.70 H (0.001-0.429) % Immature Gran # (Auto) 0.11 H (0.000-0.0310) K/mm3 Neutrophils % 95.4 H (42-75.0) % Lymphocytes % 1.6 L (20-51) % Neutrophils # 15.6 H (1.3-6.0) K/mm3 Lymphocytes # 0.26 L (1.5-3.5) k/mm3 D-Dimer (0.19-0.49) ug/mL pCO2 32.9 L (35.0-48.0) mmHg pO2 60.3 L (83.0-108.0) mmHg Total CO2 25.1 H (19.0-24.0) mmol/L ABG pH 7.48 H (7.35-7.45) ABG O2 Sat (Measured) 93.0 L (94.0-98.0) % Carbon Dioxide (24-32.6) mmol/L Anion Gap (6.8-13.8) mmol/L BUN/Creatinine Ratio (9.0-21.6) Random Glucose (70-110) mg/dL Total Bilirubin (0.0-1.1) mg/dL ALT (19-67) U/L Albumin (3.4-5.0) gm/dl Urine Blood 5 H (NEGATIVE) /ul 10/26/19 Range/Units Unknown WBC (4.0-10.5) K/mm3 RBC (4.7-6.0) M/mm3 Hgb (13.5-18.0) gm/dL Hct (42.0-52.0) % MCV (78-100) fl MCH (27-31) pg MCHC (32-36) g/dl RDW (11.5-14.0) % Immature Gran % (Auto) (0.001-0.429) % Immature Gran # (Auto) (0.000-0.0310) K/mm3 Neutrophils % (42-75.0) % Lymphocytes % (20-51) % Neutrophils # (1.3-6.0) K/mm3 Lymphocytes # (1.5-3.5) k/mm3 D-Dimer (0.19-0.49) ug/mL pCO2 (35.0-48.0) mmHg pO2 (83.0-108.0) mmHg Total CO2 (19.0-24.0) mmol/L ABG pH (7.35-7.45) ABG O2 Sat (Measured) (94.0-98.0) % Carbon Dioxide (24-32.6) mmol/L Anion Gap 15.1 H (6.8-13.8) mmol/L BUN/Creatinine Ratio (9.0-21.6) Random Glucose 155 H D (70-110) mg/dL Total Bilirubin (0.0-1.1) mg/dL ALT 10 L (19-67) U/L Albumin 2.7 L (3.4-5.0) gm/dl Urine Blood (NEGATIVE) /ul Laboratory Results WBC 16.3 K/mm3 (4.0-10.5) H 10/26/19 06:00 RBC 3.79 M/mm3 (4.7-6.0) L 10/26/19 06:00 Hgb 12.0 gm/dL (13.5-18.0) L 10/26/19 06:00 Hct 37.6 % (42.0-52.0) L 10/26/19 06:00 MCV 99.2 fl (78-100) 10/26/19 06:00 MCH 31.7 pg (27-31) H 10/26/19 06:00 MCHC 31.9 g/dl (32-36) L 10/26/19 06:00 RDW 16.7 % (11.5-14.0) H 10/26/19 06:00 Plt Count 168 K/mm3 (150-450) 10/26/19 06:00 MPV 10.8 fl (8-11.3) 10/26/19 06:00 Immature Gran % (Auto) 0.70 % (0.001-0.429) H 10/26/19 06:00 Immature Gran # (Auto) 0.11 K/mm3 (0.000-0.0310) H 10/26/19 06:00 Neutrophils % 95.4 % (42-75.0) H 10/26/19 06:00 Lymphocytes % 1.6 % (20-51) L 10/26/19 06:00 Monocytes % 2.2 % (0.0-9) 10/26/19 06:00 Eosinophils % 0.0 % (0.0-3.0) 10/26/19 06:00 Basophils % 0.1 % (0.0-1.0) 10/26/19 06:00 Nucleated RBC % 0.0 k/mm3 (0-1) 10/26/19 06:00 Neutrophils # 15.6 K/mm3 (1.3-6.0) H 10/26/19 06:00 Lymphocytes # 0.26 k/mm3 (1.5-3.5) L 10/26/19 06:00 Monocytes # 0.4 k/mm3 (0.0-1.0) 10/26/19 06:00 Eosinophils # 0.0 k/mm3 (0.0-0.7) 10/26/19 06:00 Absolute Basophils 0.0 k/mm3 (0.0-0.1) 10/26/19 06:00 D-Dimer 2.75 ug/mL (0.19-0.49) H 10/25/19 18:12 pCO2 32.9 mmHg (35.0-48.0) L 10/25/19 18:18 pO2 60.3 mmHg (83.0-108.0) L 10/25/19 18:18 HCO3 24.1 mmol/L (21.0-28.0) 10/25/19 18:18 Total CO2 25.1 mmol/L (19.0-24.0) H 10/25/19 18:18 Base Excess 1.0 mmol/L (-2.0-3.0) 10/25/19 18:18 ABG pH 7.48 (7.35-7.45) H 10/25/19 18:18 ABG O2 Sat (Measured) 93.0 % (94.0-98.0) L 10/25/19 18:18 Sodium 139 mmol/L (132-142) 10/26/19 Unknown Plasma Sodium 140 mmol/L (130-142) 10/26/19 Unknown Potassium 3.6 mmol/L (3.4-4.6) 10/26/19 Unknown Chloride 102 mmol/L (97-106) 10/26/19 Unknown Carbon Dioxide 25.5 mmol/L (24-32.6) 10/26/19 Unknown Anion Gap 15.1 mmol/L (6.8-13.8) H 10/26/19 Unknown BUN 19 mg/dL (6-23) 10/26/19 Unknown Creatinine 0.88 mg/dL (0.4-1.4) 10/26/19 Unknown Est GFR (Non-Af Amer) 88 mL/min (60-130) 10/26/19 Unknown BUN/Creatinine Ratio 21.6 (9.0-21.6) 10/26/19 Unknown Random Glucose 155 mg/dL (70-110) H D 10/26/19 Unknown Calcium 9.3 mg/dL (7.9-10.9) 10/26/19 Unknown Calcium Adj for Albumin 10.0 mg/dL (8.4-10.2) 10/26/19 Unknown Total Bilirubin 1.0 mg/dL (0.0-1.1) 10/26/19 Unknown AST 22 U/L (0-48) 10/26/19 Unknown ALT 10 U/L (19-67) L 10/26/19 Unknown Alkaline Phosphatase 97 U/L (50-170) 10/26/19 Unknown Troponin I 0.043 ng/mL (0.00-0.10) 10/25/19 18:12 B-Natriuretic Peptide 409 pg/mL (5-650) 10/25/19 18:12 Total Protein 6.7 gm/dL (6.2-8.2) 10/26/19 Unknown Albumin 2.7 gm/dl (3.4-5.0) L 10/26/19 Unknown Urine Color Yellow 10/25/19 18:39 Urine Appearance Clear (CLEAR) 10/25/19 18:39 Urine pH 6.5 pH (5.0-7.0) 10/25/19 18:39 Ur Specific [place] 1.020 SP.GR. (1.005-1.030) 10/25/19 18:39 Urine Protein Negative mg/dL (NEGATIVE) 10/25/19 18:39 Urine Glucose (UA) Negative mg/dL (NEGATIVE) 10/25/19 18:39 Urine Ketones 15 mg/dL (NEGATIVE) 10/25/19 18:39 Urine Blood 5 /ul (NEGATIVE) H 10/25/19 18:39 Urine Nitrate Negative (NEGATIVE) 10/25/19 18:39 Urine Bilirubin Negative mg/dl (NEGATIVE) 10/25/19 18:39 Urine Urobilinogen Normal EU/dl (NORMAL) 10/25/19 18:39 Ur Leukocyte Esterase Negative /ul (NEGATIVE) 10/25/19 18:39 Urine RBC None seen /hpf (0-5) 12 18:39 Urine WBC 0-5 /hpf (0-5) 10/25/19 18:39 Ur Epithelial Cells None seen /hpf (0-5) 10/25/19 18:39 Urine Bacteria None seen (NONE) 10/25/19 18:39 Urine Culture Comments No culture indicated 10/25/19 18:39 Assessment/Plan - Narrative Narrative: Angel is an 84 yo male that has already been treated as outpatient for COPD exacerbation and pneumonia with levaquin. Will admit to inpatient on IV solumedrol, rocephin/azithromycin, and nebulizer breathing treatments. Will treat with oxygen prn to keep sats 88% or greater. Expect to be admitted for >2 midnights to monitor for response to treatment. - Assessment/Plan (1) Pneumonia Problem: Acute Qualifiers: Pneumonia type: due to unspecified organism Laterality: bilateral Lung location: lower lobe of lung Qualified Code(s): J18.9 - Pneumonia, unspecified organism (2) Weakness Problem: Acute (3) COPD exacerbation Problem: Acute (4) Parkinsons Problem: Chronic (5) Risk for falls Problem: Chronic
[2019-10-26] MEDS ORDERED: rOPINIRole HCL 0.5 MG TABLET PO ONE (08:33)
[2019-10-26] MEDS ORDERED: traMADol HCL 50 MG TABLET PO ONE (08:34)
[2019-10-26] MEDS: HYDROCHLOROTHIAZIDE 12.5 MG CAPSULE PO SCH (09:42)
[2019-10-26] MEDS: ASPIRIN 325 MG TABLET.DR PO SCH (09:42)
[2019-10-26] MEDS: CHOLECALCIFEROL 1,000 UNIT CAPSULE PO SCH (09:42)
[2019-10-26] MEDS: LOSARTAN POTASSIUM 50 MG TABLET PO SCH (09:42)
[2019-10-26] MEDS ORDERED: AZITHROMYCIN 500 MG in DEXTROSE 5 % IN WATER 250 ML IV ONE ×2 (10:00)
[2019-10-26] MEDS: METOPROLOL TARTRATE 25 MG TABLET PO SCH ×2 (10:03→20:31)
[2019-10-26] MEDS: ROSUVASTATIN CALCIUM 10 MG TABLET PO SCH (20:31)
[2019-10-26] MEDS: rOPINIRole HCL 0.5 MG TABLET PO SCH (20:31)
[2019-10-26] MEDS ORDERED: LEVOFLOXACIN IN DEXTROSE 5 % 500 MG/100 ML BAG IV SCH (22:30)
[2019-10-27] MEDS: ALBUTEROL SULFATE/IPRATROPIUM 3 ML NEBU IH SCH ×4 (00:04→18:02)
[2019-10-27] MEDS: METHYLPREDNISOLONE SOD SUCC/PF 40 MG/ML VIAL IV SCH ×2 (05:54→11:27)
[2019-10-27] MEDS: AZITHROMYCIN 250 MG TABLET PO SCH (10:20)
[2019-10-27] MEDS: HYDROCHLOROTHIAZIDE 12.5 MG CAPSULE PO SCH (10:21)
[2019-10-27] MEDS: CHOLECALCIFEROL 1,000 UNIT CAPSULE PO SCH (10:21)
[2019-10-27] MEDS: LOSARTAN POTASSIUM 50 MG TABLET PO SCH (10:21)
[2019-10-27] MEDS: ASPIRIN 325 MG TABLET.DR PO SCH (10:21)
[2019-10-27] MEDS: METOPROLOL TARTRATE 25 MG TABLET PO SCH ×2 (10:21→20:32)
[2019-10-27] MEDS: rOPINIRole HCL 0.5 MG TABLET PO SCH (20:31)
[2019-10-27] MEDS: ROSUVASTATIN CALCIUM 10 MG TABLET PO SCH (20:31)
[2019-10-27] MEDS ORDERED: ALPRAZolam 1 MG TABLET PO PRN (21:25)
[2019-10-27] MEDS ORDERED: rOPINIRole HCL 0.5 MG TABLET PO ONE (21:30)
--- NOTE | 2019-10-27 23:21 | PN ---
Subjective - Date and Time Seen Date: 10/27/19 Time: 16:30 Subjective Narrative: He reports breathing better. No fever, chills, nausea, or vomiting. Objective - Vitals Vitals: Last Vital Signs Temp 36.5 C 10/27/19 22:23 Pulse 102 H 10/27/19 22:23 Resp 22 H 10/27/19 22:23 BP 111/51 10/27/19 22:23 Pulse Ox 95 10/27/19 19:03 - Exam Constitutional: Present: Alert, Oriented x3, Cooperative ENT Exam: Present: hearing grossly normal Respiratory: Present: respiratory distress, decreased breath sounds, wheezing Cardiovascular/Chest: Present: regular rate, rhythm, no murmur Abdomen: Present: Normal bowel sounds, soft, nontender, nondistended Extremity: Present: normal inspection Skin Exam: Present: normal color, warm/dry, no cyanosis Assessment/Plan Plan Narrative: Improving, remains weak and will need skilled therapy. Case management looking to [facility]. Change steroid to oral, continue antibiotics. - Problems/Diagnosis (1) Pneumonia Problem: Acute Qualifiers: Pneumonia type: due to unspecified organism Laterality: bilateral Lung location: lower lobe of lung Qualified Code(s): J18.9 - Pneumonia, unspecified organism (2) Weakness Problem: Acute (3) COPD exacerbation Problem: Acute (4) Parkinsons Problem: Chronic (5) Risk for falls Problem: Chronic
[2019-10-28] MEDS: ALBUTEROL SULFATE/IPRATROPIUM 3 ML NEBU IH SCH ×4 (00:12→18:20)
[2019-10-28] MEDS: predniSONE 20 MG TABLET PO SCH (08:56)
[2019-10-28] MEDS: ASPIRIN 325 MG TABLET.DR PO SCH (08:56)
[2019-10-28] MEDS: LOSARTAN POTASSIUM 50 MG TABLET PO SCH (08:56)
[2019-10-28] MEDS: METOPROLOL TARTRATE 25 MG TABLET PO SCH ×2 (08:56→20:12)
[2019-10-28] MEDS: HYDROCHLOROTHIAZIDE 12.5 MG CAPSULE PO SCH (08:56)
[2019-10-28] MEDS: CHOLECALCIFEROL 1,000 UNIT CAPSULE PO SCH (08:57)
[2019-10-28] MEDS: AZITHROMYCIN 250 MG TABLET PO SCH (08:57)
[2019-10-28] MEDS: rOPINIRole HCL 0.5 MG TABLET PO SCH (20:12)
[2019-10-28] MEDS: ROSUVASTATIN CALCIUM 10 MG TABLET PO SCH (20:13)
[2019-10-28] MEDS ORDERED: CARBIDOPA/LEVODOPA 25/250 1 TAB TABLET PO SCH (21:00)
--- NOTE | 2019-10-28 23:37 | PN ---
Subjective - Date and Time Seen Date: 10/28/19 Time: 16:30 Subjective Narrative: He reports feeling better today. He did not sleep well. Breathing improved. No fever, chills, nausea, or vomiting. Objective - Vitals Vitals: Last Vital Signs Temp 36.5 C 10/28/19 23:08 Pulse 66 10/28/19 23:08 Resp 20 10/28/19 23:08 BP 122/64 10/28/19 23:20 Pulse Ox 93 10/28/19 23:08 - Exam Constitutional: Present: Alert, Oriented x3, Cooperative ENT Exam: Present: hearing grossly normal Respiratory: Present: decreased breath sounds Cardiovascular/Chest: Present: regular rate, rhythm, no murmur Abdomen: Present: Normal bowel sounds, soft, nontender, nondistended Extremity: Present: normal inspection Skin Exam: Present: normal color, warm/dry, no cyanosis Appearance: Present: appropriate appearance, appropriate insight Eye contact: Present: cooperative, good eye contact, normal speech Thoughts: Present: normal thought pattern, no apparent hallucination Assessment/Plan Plan Narrative: Continues to improve. Remains weak, planning to discharge to nursing facility tomorrow for SNF. Continue antibiotics and steroids for 7 total days. - Problems/Diagnosis (1) Pneumonia Problem: Acute Qualifiers: Pneumonia type: due to unspecified organism Laterality: bilateral Lung location: lower lobe of lung Qualified Code(s): J18.9 - Pneumonia, unspecified organism (2) Weakness Problem: Acute (3) COPD exacerbation Problem: Acute (4) Parkinsons Problem: Chronic (5) Risk for falls Problem: Chronic
[2019-10-29] MEDS: ALBUTEROL SULFATE/IPRATROPIUM 3 ML NEBU IH SCH ×2 (00:05→06:45)
[2019-10-29] MEDS: ASPIRIN 325 MG TABLET.DR PO SCH (08:41)
[2019-10-29] MEDS: LOSARTAN POTASSIUM 50 MG TABLET PO SCH (08:42)
[2019-10-29] MEDS: METOPROLOL TARTRATE 25 MG TABLET PO SCH (08:42)
[2019-10-29] MEDS: CHOLECALCIFEROL 1,000 UNIT CAPSULE PO SCH (08:47)
[2019-10-29] MEDS: predniSONE 20 MG TABLET PO SCH (08:47)
[2019-10-29] MEDS: HYDROCHLOROTHIAZIDE 12.5 MG CAPSULE PO SCH (08:47)
[2019-10-29] MEDS: AZITHROMYCIN 250 MG TABLET PO SCH (08:48)
--- NOTE | 2019-10-29 09:37 | DS ---
(1) Pneumonia Problem: Acute Qualifiers: Pneumonia type: due to unspecified organism Laterality: bilateral Lung location: lower lobe of lung Qualified Code(s): J18.9 - Pneumonia, unspecified organism (2) Weakness Problem: Acute (3) COPD exacerbation Problem: Acute (4) Parkinsons Problem: Chronic (5) Risk for falls Problem: Chronic Date of Discharge:: 10/29/19 Description of Stay: Angel is an 84 yo male that presented for continued shortness of breath, cough, and weakness with frequent falls at home. He had recently been treated with levaquin for pneumonia but had not improved. Chest xray and CT in the ER showed pneumonia bilaterally. He was started on rocephin/azithromycin and IV solu-medrol 60mg q6hr. He was admitted to inpatient status due to significant dyspnea and failure of outpatient treatment. He gradually improved and steroids were converted to oral. He will be completed on a 5 day course of azithromycin and a 10 day course of rocephin which will be converted to cefdinir. Prednisone will be tapered. He was weak due to illness with frequent falls at home. PT was consulted and he will need SNF at discharge. He was accepted to [facility] at discharge. Procedures Performed: none Results and Findings: Pending Mircobiology Results 10/25/19 20:00 Blood Blood Culture - Preliminary NO GROWTH AFTER 48 HOURS Lab Pending Results 10/25/19 18:12: WBC 16.0 H, RBC 3.80 L, Hgb 11.8 L, Hct 38.1 L, MCV 100.3 H, MCH 31.1 H, MCHC 31.0 L, RDW 16.7 H, Plt Count 175, MPV 9.8, Immature Gran % (Auto) 0.90 H, Immature Gran # (Auto) 0.15 H, Neutrophils % 90.9 H, Lymphocytes % 2.6 L, Monocytes % 5.0, Eosinophils % 0.3, Basophils % 0.3, Nucleated RBC % 0.0, Neutrophils # 14.5 H, Lymphocytes # 0.41 L, Monocytes # 0.8, Eosinophils # 0.0, Absolute Basophils 0.1 10/25/19 18:12: Sodium 141, Plasma Sodium 141, Potassium 3.4, Chloride 104, Carbon Dioxide 33.6 H, Anion Gap 6.8, BUN 23, Creatinine 0.85, Est GFR (Non-Af Amer) 91, BUN/Creatinine Ratio 27.1 H, Random Glucose 100, Calcium 8.7, Calcium Adj for Albumin 9.2, Total Bilirubin 1.2 H, AST 22, ALT 11 L, Alkaline Phosphatase 109, B-Natriuretic Peptide 409, Total Protein 6.8, Albumin 3.0 L 10/25/19 18:12: Troponin I 0.043 10/25/19 18:12: D-Dimer 2.75 H 10/25/19 18:18: pCO2 32.9 L, pO2 60.3 L, HCO3 24.1, Total CO2 25.1 H, Base Excess 1.0, ABG pH 7.48 H, ABG O2 Sat (Measured) 93.0 L 10/25/19 18:39: Urine Color Yellow, Urine Appearance Clear, Urine pH 6.5, Ur Specific [place] 1.020, Urine Protein Negative, Urine Glucose (UA) Negative, Urine Ketones 15, Urine Blood 5 H, Urine Nitrate Negative, Urine Bilirubin Negative, Urine Urobilinogen Normal, Ur Leukocyte Esterase Negative, Urine RBC None seen, Urine WBC 0-5, Ur Epithelial Cells None seen, Urine Bacteria None seen, Urine Culture Comments No culture indicated 10/26/19 06:00: WBC 16.3 H, RBC 3.79 L, Hgb 12.0 L, Hct 37.6 L, MCV 99.2, MCH 31.7 H, MCHC 31.9 L, RDW 16.7 H, Plt Count 168, MPV 10.8, Immature Gran % (Auto) 0.70 H, Immature Gran # (Auto) 0.11 H, Neutrophils % 95.4 H, Lymphocytes % 1.6 L, Monocytes % 2.2, Eosinophils % 0.0, Basophils % 0.1, Nucleated RBC % 0.0, Neutrophils # 15.6 H, Lymphocytes # 0.26 L, Monocytes # 0.4, Eosinophils # 0.0, Absolute Basophils 0.0 10/26/19 : Sodium 139, Plasma Sodium 140, Potassium 3.6, Chloride 102, Carbon Dioxide 25.5, Anion Gap 15.1 H, BUN 19, Creatinine 0.88, Est GFR (Non-Af Amer) 88, BUN/Creatinine Ratio 21.6, Random Glucose 155 H D, Calcium 9.3, Calcium Adj for Albumin 10.0, Total Bilirubin 1.0, AST 22, ALT 10 L, Alkaline Phosphatase 97, Total Protein 6.7, Albumin 2.7 L Discharge Location: [place] [place] Disposition: SNF Condition: Good Level of Care: SNF Discharge Activity: Activity as tolerated Discharge Diet: General/regular food Long-Term Therapy: Physical Therapy, Occupation Therapy Referrals: Geovany Mcbride DO [Primary Care Provider] - Problem Oriented Discharge Instructions to Patient/Family: Community-Acquired Pneumonia, Adult, [id number] Prescriptions (Any new or edited meds): Cefdinir [Omnicef] 300 mg PO Q12H #14 cap Transmission Status: Pending to [facility] [place] predniSONE [Prednisone] 40 mg PO DAILY #25 tab Transmission Status: Pending to [facility] [place] Azithromycin [Zithromax] 250 mg PO DAILY #1 tab Transmission Status: Pending to [facility] [place] Complete Home Medications List: Complete Home Medication List: Aspirin 325 mg PO DAILY 04/16/16 Atorvastatin Calcium [Lipitor] 10 mg PO DAILY 04/16/16 Budesonide/Formoterol Fumarate [Symbicort 80-4.5 Mcg Inhaler] 1 puff IH BID 04/16/16 Carbidopa [Lodosyn] 25 mg PO HS 04/16/16 Hydrochlorothiazide [Hydrodiuril] 12.5 mg PO DAILY 04/16/16 Losartan Potassium [Cozaar] 50 mg PO DAILY 04/16/16 Metoprolol Tartrate [Lopressor] 12.5 mg PO BID 04/16/16 ropinirole 0.5 mg tablet 0.5 mg PO HS 06/24/18 cholecalciferol (vitamin D3) 2,000 unit capsule 2,000 unit PO DAILY 10/07/19 tiotropium bromide 18 mcg capsule with inhalation device 1 cap INHALATION DAILY #0.1 inh 10/19/19 Polyethylene Glycol 3350 [Miralax] 17 gm PO PRN PRN 10/25/19 Azithromycin [Zithromax] 250 mg PO DAILY #1 tab 10/29/19 Cefdinir [Omnicef] 300 mg PO Q12H #14 cap 10/29/19 predniSONE [Prednisone] 40 mg PO DAILY #25 tab 10/29/19
[2019-10-29 11:10] VITALS: BP 153/71
== END 2019-10-29 11:00 | DRG 194 ==
LOC: MS 17:35 → ER 17:35 → MS 22:52
PROVIDERS: ADMIT Family Medicine; ATTEND Family Medicine
DX: J44.1 Chronic obstructive pulmonary disease with (acute) exacerbation; R53.1 Weakness; I10 Essential (primary) hypertension; Z87.891 Personal history of nicotine dependence; J18.9 Pneumonia, unspecified organism; I25.10 Atherosclerotic heart disease of native coronary artery without angina pectoris; I48.91 Unspecified atrial fibrillation; J96.10 Chronic respiratory failure, unspecified whether with hypoxia or hypercapnia; R79.89 Other specified abnormal findings of blood chemistry; Z91.81 History of falling; Z99.81 Dependence on supplemental oxygen; G20 Parkinson's disease
CPT/HCPCS: 36415; 36600; 71010; 71045; 71275; 80053; 81001; 82803; 83519; 83880; 84484; 85025; 85379; 87040; 93005; 94640; 94664; 94760; 97110; 97116; 97161; 99285; G0378; Q9967